=== PATIENT | female | born 1970 | race Caucasian/White ===

== ENCOUNTER 2025-06-05 13:25 | Outpatient (AMB) | payer BC, SELFPAY ==
--- OUTSIDE RECORDS SUMMARY | 2025-01-23 05:20 | XMS_ITS ---
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 Programming Professor Name Role Phone ASIA AYALA, SOFÍA Primary Care Provider Tashav Izabela Burt Unavailable [phone] REASON FOR VISIT Annual (YELLOW FORM DONE) Encounters Encounter Location Date Provider Diagnosis [facility] [address] [place] [address] 01/23/2025 Izabela Escamilla Plan Of Treatment Next Appt Details Provider Name:Izabela daigle, 04/18/2026 02:40:00 PM, [address], [address], [place], [address], Progress Notes * ESTRADA PAYNEB:1970 (55 yo F)Acc No.[id number]:01/23/2025 PROGRESS NOTES Patient: LEODAN TRAN Appointment Provider: Leesa Escamilla M.D. :1970 A ge:54 Y S ex:Female Date:01/23/2025 Address:[address] [place], [place] [id number] Pcp:SOFÍA BETANCOURT NP Subjective: * Chief Complaints: * 1 . Annual (YELLOW FORM DONE). * Medical History: Objective: * Vitals: Assessment: Plan: * Treatment: * Images: Billing Information: * Visit Code: * Procedure Codes: * Electronic signature of Sammy Escamilla MD on 06/05/2025 at 02:07 PM EDT Sign off status: Pending * Appointment Provider: Leesa HoyosD. Date: 0 01/23/2025 Generated for Joseph bhandari/Irene/Helena on: 0 06/05/2025 02:07 PM EDT
--- NOTE | 2025-06-05 13:45 | A.OFFVIS_ITS ---
Intake Visit Reasons: 3 mnts Migraine Allergies No Known Allergies Allergy (Verified 05/31/25 08:49) Medication List - Last Reconciled 06/05/25 by Macho Frias MD amitriptyline 10 mg PO BEDTIME bupropion HCl XL 300 mg PO DAILY clonazepam mg PO lamotrigine 50 mg PO BID ondansetron HCl mg PO sumatriptan succinate mg PO HPI Comments Details: 55 yo woman with migraine and possible partial seizure disorder (difficult to explain feeling, not pain, like adrenaline but not happy adrenaline, involving her torso, and always same area usually before sleeping and lasting for a minute or usually a few minutes. It made her uncomfortable. There was no alteration of consciousness with it). Routine EEG was ok. Amb EEG revealed right temporal sharp waves. [facility] Medical History (Updated 06/05/25 @ 13:47 by Macho Frias MD) Partial seizure disorder MCI (mild cognitive impairment) Anxiety Bruxism Cerebral microvascular disease Migraine without aura Review of Systems Const Details: Constitutional:?No fever, chills, fatigue, weight loss, or night sweats. HEENT:?No headache, vision changes, hearing loss, nasal congestion, sore throat. Neurological:?No dizziness, syncope, seizures, numbness, tingling, weakness, tremors, memory loss. Psychiatric:?No anxiety, depression, mood swings, sleep disturbance, or hallucinations. Endocrine:?No heat/cold intolerance, polydipsia, polyuria, or hair/skin changes. Hematologic/Lymphatic:?No easy bruising, bleeding, or lymphadenopathy. Integumentary (Skin):?No rash, lesions, itching, or color changes. ? Physical Exam Neuro Other: Mental Status: Alert and oriented to person, place, and time. Normal attention. Normal spontaneous speech, fluency, and comprehension. No obvious issues with mood and memory. Affect is appropriate. Cranial Nerves: CN II: Visual florentino full to confrontation, visual acuity intact. CN III, IV, : Pupils equal, round, reactive to light and accommodation. Extraocular movements are normal. CN V: Facial sensation is normal. CN VII: Facial movements symmetrical. CN VIII: Hearing intact to bedside conversation is normal. CN IX, X: Palate elevates symmetrically. CN XI: Shoulder shrug and head turn symmetrical. CN XII: Tongue midline without atrophy or fasciculations. Motor: Bulk and tone normal in all extremities. No significant muscle weakness in arms and legs. No drift. Reflexes: Deep tendon reflexes 2+ and symmetric. Plantar response down-going bilaterally. Coordination: Ygoquc-[id number] and gbiv-er-[id number] testing normal. No dysmetria. Gait and Station: No obvious gait abnormality. No ataxia or instability. Sensory: Intact to light touch, pinprick, and vibration. Romberg is negative. Extrapyramidal: Full facial expressions and blinking. No rigidity. Movements are appropriate with no tremor or abnormality. Speech: Normal; no dysarthria or tremor. Assessment & Plan Assessment & Plan (1) Migraine with aura, not intractable, without status migrainosus: Code(s): G43.109 - Migraine with aura, not intractable, without status migrainosus Category: Medical (2) Partial seizure disorder: Comment: 48 hr EEG at [facility] in 2023: Mild R temp abn, sharp discharges Routine EEG at [facility] in Nov 2023: WNL MRI brain WO [facility] Sep 2022: a few non specific WH lesions, small pineal cyst. Code(s): G40.109 - Localization-related (focal) (partial) symptomatic epilepsy and epileptic syndromes with simple partial seizures, not intractable, without status epilepticus Category: Medical Plan Impression: a: Migraine w/o aura b: Partial seizure do c: Significant anxiety/depression Rec: a: Amitryptiline 10mg at night b: Lamotrigine 100mg bid c: PRN Sumatriptan 50mg d: See a therapist and psychiatrist to adjust meds Medications: New sumatriptan succinate 50 mg orally one a day as needed; 10 tabs 5RF lamotrigine 100 mg PO BID 180 tabs 1RF amitriptyline 10 mg PO BEDTIME 90 tabs 1RF Coding Level of Care Code Tele Est Pt Level 4 (39809) Diagnoses Migraine with aura, not intractable, without status migrainosus G43.109 Partial seizure disorder G40.109
--- OUTSIDE RECORDS SUMMARY | 2025-06-05 14:08 | XMS_ITS | Clinical Summary ---
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 Mixer Name Role Phone Unavailable Primary Care Provider Unavailabl e Social History Tobacco Use Types Packs/Day Years Used Date Smoking Tobacco: Never Assessed Comments Unknown Sex and Gender Information Value Date Recorded Sex Assigned at Not on file Legal Sex Female 11:19 PM EST Gender Identity Not on file Sexual Orientation Not on file Plan of Treatment Health Maintenance Due Date Last Done Comments Breast Cancer Screening 1970 DTaP,Tdap,and Td Vaccines (1 - Tdap) 1987 Hepatitis B Vaccines (1 of 3 - 19+ 3-dose series) 1987 Cervical Cancer Screening: P ap Smear 1989 Pneumococcal Vaccine: 50+ Ye ars (1 of 1 - PCV) 2018 Zoster Vaccines (1 of 2) 2018 COVID-19 Vaccine ( - 2023-2 5 season) 2024 Colorectal Cancer Screening: Colonoscopy 09/03/2024 HIV Screening 09/03/2024 Hepatitis C Screening 09/03/2024 Social Influencers of Health Screening 09/03/2024 Depression Screening 11/09/2024 Influenza Vaccine (#1) 2025 HIB Vaccines Aged Out No longer eligi ble based on patient's age to complete this topic HPV Vaccines Aged Out No longer eligi ble based on patient's age to complete this topic Hepatitis A Vaccines Aged Out No long er eligible based on patient's age to complete this topic IPV Vaccines Aged Out No longer eligi ble based on patient's age to complete this topic MMR Vaccines Aged Out No longer eligi ble based on patient's age to complete this topic Meningococcal ACWY Vaccine Aged Out N o longer eligible based on patient's age to complete this topic Meningococcal B Vaccine Aged Out No l onger eligible based on patient's age to complete this topic RSV Immunization Patients Un jonh 20 months Aged Out No longer eligible b ased on patient's age to complete this topic Varicella Vaccines Aged Out No longer eligible based on patient's age to complete this topic
== END 2025-06-05 14:10 | disposition home or self-care (01) ==
LOC: HO.HSM 13:26
PROVIDERS: PCP Nurse Practitioner Primary Care; Referring Provider Internal Medicine; Visit Provider Psychiatry & Neurology Neurology
DX: G43.109 Migraine with aura, not intractable, without status migrainosus (principal); G40.109 Localization-related (focal) (partial) symptomatic epilepsy and epileptic syndromes with simple partial seizures, not intractable, without status epilepticus
CPT/HCPCS: 99214